=== PATIENT | female | born 1965 | race Two or more races ===

== ENCOUNTER 2025-08-17 09:22 | Emergency (ER) | payer OTHER, SELFPAY ==
[2025-08-17 09:23] VITALS: BMI 36.6
[2025-08-17 09:41] VITALS: BP 149/93; PULSE 66; RESP 18; TEMP 36.7; O2SAT 98
[2025-08-17] MEDS: DIPHTH,PERTUSS(ACELL),TET VAC 0.5 ML SYR- ADULT IMi (10:13)
[2025-08-17] MEDS: LIDOCAINE HCL 1% 20 ML VIAL INFL (10:14)
--- NOTE | 2025-08-17 10:44 | EDNOTE_ITS ---
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 Seen by Provider: 08/17/25 09:41 Arrival date/time: 08/17/25 09:22 60-year-old female presents to the Emergency Department of complaint of laceration right index finger Limitations: no limitations Related Data Previous Rx's ?Medication ?Instructions ?Recorded cephalexin 500 mg capsule 500 mg PO BID 7 days #14 cap s 08/17/25 ibuprofen 800 mg tablet 800 mg PO TID PRN pain #30 t abs 08/17/25 Allergies Allergy/AdvReac Type Severity Reaction Status Date / Time NKA* Allergy Uncoded 08/17/25 09:25 Review of Systems Review of Systems Systems Reviewed: All systems reviewed, normal except as documented Constitutional Constitutional: Reports system reviewed and no additional complaints, except as documented, Denies fever(s) and Denies headache(s) Eyes Eyes: Reports system reviewed and no additional complaints, except as documented and Denies blurry vision ENT Ears, Nose, Mouth, and Throat: Reports system reviewed and no additional complaints, except as documented, Denies headache(s), Denies nasal congestion and Denies nasal discharge Cardiovascular Cardiovascular: Reports system reviewed and no additional complaints, except as documented, Denies chest pain and Denies dyspnea Respiratory Respiratory: Reports system reviewed and no additional complaints, except as documented, Denies chest congestion, Denies cough and Denies dyspnea Gastrointestinal Gastrointestinal: Reports system reviewed and no additional complaints, except as documented and Denies abdominal pain Integumentary/Breasts Skin/Breast: Reports system reviewed and no additional complaints, except as documented, Denies rash and Reports wounds (Right index finger laceration 3 cm) Neurologic Neurologic: Reports system reviewed and no additional complaints, except as documented, Reports as per HPI and Denies headache(s) Past Medical History Social History SMOKING STATUS: Never smoker ED Exam General Limitations: Present no limitations General appearance: Present alert and in no apparent distress Head Head exam: Present atraumatic Eye Eye exam: Present normal appearance, PERRL and EOMI ENT ENT exam: Present normal exam, normal oropharynx and mucous membranes moist Neck Neck exam: Present normal inspection, full ROM and trachea midline Chest Chest inspection: Present normal inspection and symmetric chest wall rise Respiratory Respiratory exam: Present normal lung sounds bilaterally Cardiovascular Cardiovascular exam: Present regular rate, normal rhythm and normal heart sounds Abdominal Exam Abdominal exam: Present soft and normal bowel sounds Extremities Exam Extremities exam: Present full ROM, tenderness and normal capillary refill; Absent joint swelling Back Exam Back exam: Present normal inspection and full ROM Neurological Exam Neurological exam: Present alert, oriented X3 and CN II-XII intact Psychiatric Psychiatric exam: Present normal affect and normal mood Skin Skin exam: Present warm, dry and other (laceration right index finger) Course Quality Measures none Orders Category Date Time Status Set Up Suture Tray STAT Care 08/17/25 09:41 Completed Wound Care NOW Care 08/17/25 09:41 Completed Lidocaine 1% 20 ml [Xylocaine 1% 20 ML] Med 08/17/25 09:41 Discontinued 20 ml INFL X1 ONE TET,DIP/PERT AC (Adult)-Tdap [Boostrix Adult (Tdap) Med 08/17/25 09:41 Discontinued Vacc] 0.5 ml IMI .ONCE ONE Vital Signs Vital signs: Vital Signs Temperature 98.1 F 08/17/25 09:41 Pulse Rate 66 08/17/25 09:41 Respiratory Rate 18 08/17/25 09:41 Blood Pressure 149/93 H 08/17/25 09:41 Pulse Oximetry (%) 98 08/17/25 09:41 Oxygen Delivery Method Room Air 08/17/25 09:41 o2 sat 98% r.a wnl PROCEDURES: Laceration Laceration 1: Site: hand Side (If applicable): right Size (cm): 3 Description: linear Depth: simple, single layer Local Anesthetic: lidocaine 1% Amount of anesthesia used (mL): 6 Pre-repair: wound explored and irrigated extensively Skin layer closed with: nylon Suture size (cm): 4-0 Number of sutures: 6 Technique: simple, interrupted Extremity Injury MDM Narrative MDM Narrative:: 60-year-old female presents to the Emergency Department of complaint of laceration right index finger Patient reports actually cut herself while at work today Wound irrigated copiously laceration repaired no bleeding at time of discharge On exam patient has no evidence of tendon or ligamentous injury Patient instructed to follow-up with Workmen's Compensation doctor in next 24 to 48 hours for worsening symptoms return immediately Patient instructed to have his sutures removed in 10 days Patient data External records reviewed:: [facility] previous records Clinical information provided by:: patient Social determinants that could affect healthcare access:: none Patient has the following chronic illnesses:: None How is presenting disease/condition affected by chronic disease/condition?: no chronic disease Evaluation data The following diagnostics were reviewed and interpreted by me:: other (specify) Lab and/or radiology exams considered but not ordered:: Considered and indicated Interpretation Summary: N/A Medications / Prescriptions Medications or Prescriptions considered but not ordered:: given Medication administrations:: Medication Administration History Discontinued Medications Diphtheria/Tetanus/Acell Pertussis (Diphth,Pertuss(Acell),Tet Vac 0.5 Ml Syr- Adult) 0.5 ml IMi .ONCE ONE Stop: 08/17/25 09:42 Last Admin: 08/17/25 10:13 Dose: 0.5 ml Documented By: MERY Lidocaine HCl (Lidocaine Hcl 1% 20 Ml Vial) 20 ml INFL X1 ONE Stop: 08/17/25 09:42 Last Admin: 08/17/25 10:14 Dose: 20 ml Documented By: MERY given Consultations Consultation(s) initiated? (list below): No Diagnosis Upper Extremity Injury Differential Diagnosis: other (Laceration, abrasion, avulsion) Most likely diagnosis given after review of the tests above:: Laceration Admission Indicated Admission indicated?: not indicated Admission Request Was there a request for admission?: No Disposition Plan Disposition Plan: Discharge Discharge Attestation Discharge Attestation: The patient and all family members were given an opportunity to ask questions and understood the discharge instructions. Discharge instructions specifically effects, indications for sooner follow up or return to the emergency department, and the expected course of current diagnosis. Patient condition: Stable Discharge Plan Plan Patient Disposition: HOME (Self Care) Discharge Disposition comment: Stable Prescriptions/Referrals Prescriptions/Med Rec: New ibuprofen 800 mg tablet 800 mg PO TID PRN (Reason: pain) Qty: 30 0RF cephalexin 500 mg capsule 500 mg PO BID 7 Days Qty: 14 0RF Referrals: Miladys Sears NP [Primary Care Provider] - 08/18/25 Problem List Clinical Impression: Laceration of finger of right hand, Work related injury Patient/Caregiver Discharge Instructions Education Materials: ED Laceration: All Closures Additional Instructions: Please follow up with your primary care doctor in the next 24-48hrs for any worsening symptoms return here immediately Print Language: Setswana Stand Alone Forms: Erin Award Info., Patient Portal Info Letter PA/BAN Supervising Physician HAM/BAN Supervising Physician: dr lucero
== END 2025-08-17 11:25 | disposition home or self-care (01) ==
PROVIDERS: Emergency Provider Nurse Practitioner Primary Care; PCP Nurse Practitioner Family
DX: S61.210A Laceration without foreign body of right index finger without damage to nail, initial encounter (principal); X58.XXXA Exposure to other specified factors, initial encounter; Y99.0 Civilian activity done for income or pay
CPT/HCPCS: 12002; 90471; 90715; 99281; J3490